=== PATIENT | female | born 1950 | race Caucasian/White ===

== ENCOUNTER 2023-12-29 13:36 | Inpatient (IN) | payer OTHER ==
[2023-12-29 14:28] LABS: Absolute Basophils 0.1 K/uL (0-0.5); Absolute Eosinophils 0.3 K/uL (0-0.5); Absolute Monocytes 0.5 K/uL (0.1-1.3); Absolute Neutrophil 3.2 K/uL (1.8-8.0); Eosinophils % 5.1 % (0-4.4); Hematocrit 31.9 % (36.0-45.0); Hemoglobin 10.3 g/dL (12.0-15.0); Lymphocytes % 32.9 % (15.3-44.8); MCH 26.2 pg (27.0-35.0); MCHC 32.4 g/dL (32.0-36.0); MCV 80.8 fL (80-100); MPV 7.5 fL (7.6-11.3); Monocytes % 8.1 % (3.3-12.3); Neutrophils % 52.9 % (41.7-73.7); Platelets 227 thou/uL (152-406); RBC Red Blood Cell Count 3.95 M/uL (3.86-4.86); Red Cell Distribution Width 16.6 % (12.1-15.2)
--- NOTE | 2023-12-29 14:34 | RAD REPORT ---
EXAM DESCRIPTION: RAD - Chest Single View - 12/29/2023 2:10 pm CLINICAL HISTORY: ams COMPARISON: No comparisons FINDINGS: Lines: None. Lungs: No evidence of edema or pneumonia. Pleural: No significant pleural effusions or pneumothorax. Cardiac: Mild cardiomegaly. Mediastinum: Within normal limits. Bones: No acute fractures. Other: None IMPRESSION: No acute cardiopulmonary disease.
[2023-12-29 14:48] LABS: ALT/SGPT 15 U/L (13-56); Albumin 2.7 g/dL (3.4-5.0); Albumin/Globulin Ratio 0.7 (1.1-1.8); Alkaline Phosphatase 77 U/L (45-117); Anion Gap 5.4 mEq/L (5.0-15.0); BUN Blood Urea Nitrogen 23 mg/dL (7-18); Bicarbonate 31 mEq/L (21-32); Bilirubin Total 0.2 mg/dL (0.2-1.0); Globulin 4.1 g/dL (2.3-3.5); Glomerular Filtration Rate 87 ml/min (=/>90); Glucose Level 146 mg/dL (74-106); Lipase 16 U/L (13-75); Potassium 3.4 mEq/L (3.5-5.1); Protein, Total 6.8 g/dL (6.4-8.2); Sodium Level 142 mEq/L (136-145); Troponin High Sensitivity 13.8 pg/mL (<58.9)
[2023-12-29 14:49] LABS: AST/SGOT < 10 U/L (15-37)
[2023-12-29 14:53] LABS: Specific Gravity 1.019 (1.005-1.030); Sqamous Epithelial <5 /HPF (None Seen); Urine Bacteria None Seen /HPF (<20); Urine Bilirubin NEGATIVE (Negative); Urine Blood Trace (Negative); Urine Clarity Extremely Turbid (Clear); Urine Color Light-Yellow (Yellow); Urine Crystals Unidentified Few /HPF (None Seen); Urine Culture Reflex Order REFLEXED; Urine Glucose NEGATIVE (Negative); Urine Ketones NEGATIVE (Negative); Urine Microscopic Reflex YN ORDER UMIC; Urine Nitrite 2+ (Negative); Urine Protein 2+ (Negative); Urine Urobilinogen Normal (Normal); Urine WBC >50 /HPF (<5); Urine Yeast (Budding) Occasional /HPF (None Seen)
--- NOTE | 2023-12-29 15:33 | RAD REPORT ---
EXAM DESCRIPTION: CT - Head Brain Wo Cont - 12/29/2023 3:22 pm CLINICAL HISTORY: ams COMPARISON: No comparisons TECHNIQUE: All CT scans are performed using dose optimization technique as appropriate and may inclu de automated exposure control or mA/KV adjustment according to patient size. FINDINGS: No intracranial hemorrhage, hydrocephalus or extra-axial fluid collection.No areas of brai n edema or evidence of midline shift. Age advanced moderate to severe cerebral atrophy. At least mode rate chronic small vessel ischemic changes. The paranasal sinuses and mastoids are clear. The calvarium is intact. IMPRESSION: No acute intracranial abnormality. Age advanced senescent changes.
--- NOTE | 2023-12-29 15:38 | RAD REPORT ---
EXAM DESCRIPTION: CTAbdomen Pelvis W Contrast - 12/29/2023 3:22 pm CLINICAL HISTORY: vaginal bleeding, ams COMPARISON: Head Brain Wo Cont dated 12/29/2023 TECHNIQUE: CT of the abdomen and pelvis was performed. All CT scans are performed using dose optimization technique as appropriate and may include automated exposure control or mA/KV adjustment according to patient size.5 FINDINGS: Lower chest: Mitral annular calcifications. Mild circumferential thickened distal esophagu s. Liver: No acute abnormality or suspicious lesions. Biliary: No biliary ductal dilatation. Stomach: No significant focal abnormality. Duodenum: No significant focal abnormality. Pancreas: No significant abnormality. Spleen: No significant abnormality. Adrenal: No suspicious lesions. Kidney/ureter: No hydronephrosis. No renal calculi. Too small to characterize and/or benign appearing renal lesions are noted. Retroperitoneum: No retroperitoneal adenopathy. Vascular: No aneurysm. Atherosclerosis . Bowel: No significant focal abnormality. Peritoneum: No ascites or free air. Fat containing hernia. Bladder: Bladder wall thickening with either layering debris or enhancement. Reproductive: No adnexal masses. Bones: No acute fracture. Multilevel degenerative changes are present in the spine. Grade 1 anterolis thesis of L3 on L4. Other: n/a IMPRESSION: No acute intra-abdominal or pelvic finding. Bladder wall thickening and enhancement could reflect cystitis. There may be some debris or enhanceme nt near the left UVJ. Consider nonemergent cystoscopy to evaluate this portion of the bladder and exc lude a small lesion.
[2023-12-29] MEDS ORDERED: CEFTRIAXONE 1000 MG/VIAL ONE (17:53)
[2023-12-29] MEDS ORDERED: NA CHLORIDE 0.9% 500 ML ONE (17:54)
--- NOTE | 2023-12-29 18:07 | EDPHYS ---
Physician Documentation [facility] Name: Tasha Hernandez Age: 73 yrs Sex: Female : 1950 Arrival Date: 12/29/2023 Time: 13:36 Bed 16 Private MD: ED Physician Pedro López HPI: 12/28 17:59 This 73 yrs old Female presents to ER via EMS with complaints of Vaginal Bleeding. rt 17:59 Patient presents to the ED with reported altered mental status, vaginal bleeding. rt History is severe limited due to patient with advanced dementia. It is reported that the patient had some blood in the diaper at the retirement which is why they are reporting vaginal bleeding. No other reported symptoms.. Historical: - Allergies: 13:41 metformin; cp4 13:41 Melatonin; cp4 - PMHx: 13:41 Dementia; Diabetes mellitus; Hypertensive disorder; Anxiety; cp4 - Immunization history:: Adult Immunizations up to date. - Infectious Disease History:: Denies. CDIFF, C. Auris, ESBL, MRSA (w/in 1 year), VRE (w/in 1 year), TB, . - Social history:: Smoking status: Patient denies any tobacco usage or history of. - Family history:: not pertinent. ROS: 17:59 Unable to obtain ROS due to baseline dementia, rt Exam: 17:59 Chest/axilla: Normal chest wall appearance and motion. Nontender with no deformity. rt No lesions are appreciated. Cardiovascular: Regular rate and rhythm with a normal S1 and S2. No gallops, murmurs, or rubs. Normal PMI, no JVD. No pulse deficits. Respiratory: Lungs have equal breath sounds bilaterally, clear to auscultation and percussion. No rales, rhonchi or wheezes noted. No increased work of breathing, no retractions or nasal flaring. Abdomen/GI: Soft, non-tender, with normal bowel sounds. No distension or tympany. No guarding or rebound. No evidence of tenderness throughout. Skin: Warm, dry with normal turgor. Normal color with no rashes, no lesions, and no evidence of cellulitis. MS/ Extremity: Pulses equal, no cyanosis. Neurovascular intact. Full, normal range of motion. 17:59 Constitutional: The patient appears Somnolent, not speaking 17:59 ECG was reviewed by the Attending Physician. rt Vital Signs: 13:38 BP 145 / 91; Pulse 87; Resp 18; Temp 98.2; Pulse Ox 98% ; Pain 0/10; cp4 14:30 BP 129 / 62; Pulse 75; Resp 18; Pulse Ox 97% ; cp4 15:30 BP 158 / 52; Pulse 62; Resp 18; Pulse Ox 97% ; cp4 16:30 BP 123 / 72; Pulse 18; Resp 84; Pulse Ox 97% ; cp4 17:30 BP 149 / 87; Pulse 75; Resp 18; Pulse Ox 98% ; cp4 13:38 Pain Scale: Adult cp4 MDM: 13:46 Patient medically screened. rt 17:59 Differential diagnosis: UTI, AMS, intracranial hemorrhage. Data reviewed: vital signs, rt nurses notes, lab test result(s), EKG, radiologic studies. Consideration of Admission/Observation Patient was admitted/placed on observation. Management of patient was discussed with the following: Hospitalist: Agrees to admit. I considered the following discharge prescriptions or medication management in the emergency department Medications were administered in the Emergency Department. See MAR. Independent interpretation of the following test(s) in the Emergency Department CT Scan: My interpretation is No intracranial hemorrhage seen on my interpretation of CT scan images. Care significantly affected by the following chronic conditions: Diabetes. Counseling: I had a detailed discussion with the patient and/or guardian regarding the historical points, exam findings, and any diagnostic results supporting the discharge/admit diagnosis, lab results, radiology results, the need for further work-up and treatment in the hospital. 12/28 13:53 Order name: CBC with Diff; Complete Time: 15:39 rt 12/28 13:53 Order name: CMP; Complete Time: 15:39 rt 12/28 13:53 Order name: Lipase; Complete Time: 15:39 rt 12/28 13:53 Order name: Urinalysis w/ reflexes; Complete Time: 15:39 rt 12/28 13:53 Order name: Troponin HS; Complete Time: 15:39 rt 12/28 14:59 Order name: Urine Culture EDMS 12/28 18:40 Order name: Urinalysis w/ reflexes EDMS 12/28 18:40 Order name: CBC with Automated Diff EDMS 12/28 18:40 Order name: CBC with Automated Diff EDMS 12/28 18:40 Order name: Comprehensive Metabolic Panel [facility] 12/28 18:40 Order name: Comprehensive Metabolic Panel [facility] 12/28 13:53 Order name: CT Abd/Pelvis - IV Contrast Only; Complete Time: 15:39 rt 12/28 13:53 Order name: XRAY Chest (1 view); Complete Time: 15:39 rt 12/28 13:53 Order name: CT Head Brain wo Cont; Complete Time: 15:39 rt 12/28 13:53 Order name: EKG; Complete Time: 13:53 rt 12/28 13:53 Order name: IV Saline Lock; Complete Time: 14:21 rt 12/28 13:53 Order name: Labs collected and sent; Complete Time: 14:21 rt 12/28 13:53 Order name: Cardiac monitoring; Complete Time: 13:55 rt 12/28 13:53 Order name: EKG - Nurse/Tech; Complete Time: 14:52 rt 12/28 13:53 Order name: O2 Per Protocol; Complete Time: 13:55 rt 12/28 13:53 Order name: O2 Sat Monitoring; Complete Time: 13:55 rt EC:59 Rate is 75 beats/min. Rhythm is regular, Normal Sinus Rhythm with Right bundle branch rt block. QRS [place] is Normal. MD interval is normal. QRS interval is normal. No Q waves. Administered Medications: 18:06 Drug: NS 0.9% IV 500 ml IV at bolus once Route: IV; Rate: bolus; Site: left antecubital;cp4 18:06 Drug: Rocephin IV 1 grams IV at calculated rate once; Given slow IV push per pharmacy cp4 instructions Route: IV; Rate: calculated rate; Site: left antecubital; 18:12 Follow up: Response: No adverse reaction; IV Status: Completed infusion cp4 Disposition Summary: 12/29/23 18:06 Hospitalization Ordered Notes: Hospitalization Status: Inpatient Admission rt Provider: Joe Lorenz rt Location: Telemetry/MedSurg (observation) rt Condition: Stable rt Problem: new rt Symptoms: are unchanged rt Bed/Room Type: Standard rt Room Assignment: 202(12/29/23 19:07) vk Diagnosis - UTI rt - Sepsis rt Forms: - Medication Reconciliation Form rt - SBAR form rt - Leadership Thank You Letter rt Signatures: Dispatcher [employer] Pedro Oliveira MD MD rt Cammy Samuel cp4 Megan Yee Corrections: (The following items were deleted from the chart) 13:53 13:53 Head Brain Wo Cont+CT.RAD.BRZ ordered. EDMS EDMS 19:07 18:06 rt jose enrique
--- NOTE | 2023-12-29 18:07 | ER ---
Nurse's Notes [facility] Name: Tasha Hernandez Age: 73 yrs Sex: Female : 1950 Arrival Date: 12/29/2023 Time: 13:36 Bed 16 Private MD: Diagnosis: UTI;Sepsis Presentation: 12/28 13:38 Chief complaint: EMS states: vaginal bleeding. States patient was here last month for cp4 the same thing but has not followed up. Coronavirus screen: Client denies travel out of the [place] in the last 14 days. At this time, the client does not indicate any symptoms associated with coronavirus-19. Ebola Screen: Patient negative for fever greater than or equal to 101.5 degrees Fahrenheit, and additional compatible Ebola Virus Disease symptoms Patient denies exposure to infectious person. Patient denies travel to an Ebola-affected area in the 21 days before illness onset. No symptoms or risks identified at this time. Initial Sepsis Screen: Does the patient meet any 2 criteria? No. Patient's initial sepsis screen is negative. Does the patient have a suspected source of infection? No. Patient's initial sepsis screen is negative. Risk Assessment: Do you want to hurt yourself or someone else? Patient reports no desire to harm self or others. Onset of symptoms is unknown. 13:38 Method Of Arrival: EMS: [facility] 13:38 Acuity: JAMEL 3 cp4 Triage Assessment: 13:41 General: Appears uncomfortable, Behavior is calm, cooperative, appropriate for age. cp4 Pain: Denies pain. : Reports vaginal bleeding that is bright red, with clots, moderate flow. Historical: - Allergies: 13:41 metformin; cp4 13:41 Melatonin; cp4 - PMHx: 13:41 Dementia; Diabetes mellitus; Hypertensive disorder; Anxiety; cp4 - Immunization history:: Adult Immunizations up to date. - Infectious Disease History:: Denies. CDIFF, C. Auris, ESBL, MRSA (w/in 1 year), VRE (w/in 1 year), TB, . - Social history:: Smoking status: Patient denies any tobacco usage or history of. - Family history:: not pertinent. Screenin:43 [facility] ED Fall Risk Assessment (Adult) History of falling in the last 3 months, cp4 including since admission No falls in past 3 months (0 pts). [facility] ED Fall Risk Assessment (Adult) Confusion or Disorientation No (0 pts) Intoxicated or Sedated No (0 pts) Impaired Gait No (0 pts) Mobility Assist Device Used No (0 pt) Altered Elimination No (0 pt) Score/Fall Risk Level 0 - 2 = Low Risk Oriented to surroundings, Maintained a safe environment, Assessed \T\ reinforced patient's understanding of fall precautions, Hourly rounding (assess needs \T\ fall precautionary measures) done. Abuse screen: Denies threats or abuse. Nutritional screening: No deficits noted. Tuberculosis screening: No symptoms or risk factors identified. Assessment: 13:43 Reassessment: Patient appears in no apparent distress at this time. Pain: Denies pain. cp4 Vital Signs: 13:38 BP 145 / 91; Pulse 87; Resp 18; Temp 98.2; Pulse Ox 98% ; Pain 0/10; cp4 14:30 BP 129 / 62; Pulse 75; Resp 18; Pulse Ox 97% ; cp4 15:30 BP 158 / 52; Pulse 62; Resp 18; Pulse Ox 97% ; cp4 16:30 BP 123 / 72; Pulse 18; Resp 84; Pulse Ox 97% ; cp4 17:30 BP 149 / 87; Pulse 75; Resp 18; Pulse Ox 98% ; cp4 13:38 Pain Scale: Adult cp4 ED Course: 13:37 Patient arrived in ED. cp4 13:38 Cammy Samuel is Primary Nurse. cp4 13:41 Triage completed. cp4 13:41 Pedro López MD is Attending Physician. rt 13:41 Arm band placed on right wrist. Patient placed in an exam room, on a stretcher. cp4 13:43 Bed in low position. Call light in reach. Side rails up X2. cp4 14:12 XRAY Chest (1 view) In Process Unspecified. EDMS 14:21 Troponin HS Sent. cp4 14:21 CBC with Diff Sent. cp4 14:21 CMP Sent. cp4 14:21 Lipase Sent. cp4 14:21 Initial lab(s) drawn, by me, sent to lab. Inserted saline lock: 22 gauge in left cp4 antecubital area, using aseptic technique. Blood collected. 14:52 CBC with Diff Sent. cp4 14:52 Urinalysis w/ reflexes Sent. cp4 15:[address] hb 15:23 CT Abd/Pelvis - IV Contrast Only In Process Unspecified. EDMS 15:23 CT Head Brain wo Cont In Process Unspecified. EDMS 18:06 Joe Lorenz MD is Hospitalizing Provider. rt 19:20 Mallika Urias, RN is Primary Nurse. jw7 20:37 Called to inform 2nd floor of patient coming to room 202 and Liza said the room was rv1 not ready and to wait 10 more minutes. Administered Medications: 18:06 Drug: NS 0.9% IV 500 ml IV at bolus once Route: IV; Rate: bolus; Site: left antecubital;cp4 18:06 Drug: Rocephin IV 1 grams IV at calculated rate once; Given slow IV push per pharmacy cp4 instructions Route: IV; Rate: calculated rate; Site: left antecubital; 18:12 Follow up: Response: No adverse reaction; IV Status: Completed infusion cp4 Medication: 13:43 VIS not applicable for this client. cp4 Outcome: 18:06 Decision to Hospitalize by Provider. rt 21:07 Patient left the ED. jw7 Signatures: Dispatcher [employer] EDWI Debbie Gillespie RN RN Mallika Urias, RN RN jw7 Pedro López MD MD rt Carolina Moe rv1 Cammy Samuel cp4 Corrections: (The following items were deleted from the chart) 20:39 20:37 Called to inform 2nd floor of patient coming to room 202 and was told the room rv1 was not ready. Said to wait 10 minutes. rv1
[2023-12-29] MEDS ORDERED: ACETAMINOPHEN 325 MG TABLET PO PRN (18:34)
[2023-12-29] MEDS ORDERED: ONDANSETRON 4 MG/2 ML VIAL IV PRN (18:34)
--- NOTE | 2023-12-29 18:34 | P.HP ---
Certification for Inpatient Patient admitted to: Inpatient With expected LOS: >2 Midnights Practitioner: I am a practitioner with admitting privileges, knowledge of patient current condition, hospital course, and medical plan of care. Services: Services provided to patient in accordance with Admission requirements found in Title 42 Section 412.3 of the Code of Federal Regulations Patient History Date of Service: 12/29/23 Reason for admission: AMS History of Present Illness: 73 yrs old Female with past medical history of diabetes, hypertension, anxiety, dementia who was brought to ER with complaints of altered mental status. And possible vaginal bleeding. Patient is confused at the time of presentation hence most of the history is obtained from the chart review and also talking to the ER physician. Patient started having confusion and altered mental status for the last 2 days. She has a history of advanced dementia in the [facility]. Patient was more confused than baseline and was sent over here for further management. The [facility] they noticed some blood in the diaper. Denies any fever or chills. No chest pain or shortness of breath. No nausea vomiting or diarrhea. Patient was assessed in the ER and was found to have UTI and was admitted for further management Home medications list reviewed: Yes - Past Medical/Surgical History Past Medical History: Reviewed- Non-Contributory -: Diabetes, hypertension, hyperlipidemia, dementia Past Surgical History: Reviewed- Non-Contributory - Social History Smoking Status: Never smoker Review of Systems 10-point ROS is otherwise unremarkable Physical Examination - Vital Signs Temperature: 98.2 F Blood Pressure: 126/74 Pulse: 78 Respirations: 18 Pulse Ox (%): 94 - Physical Exam General: Alert, In no apparent distress, Cooperative, Confused HEENT: Atraumatic, Normocephalic Neck: Supple, 2+ carotid pulse no bruit Respiratory: Clear to auscultation bilaterally, Normal air movement Cardiovascular: No edema, Regular rate/rhythm, Normal S1 S2 Capillary refill: <2 Seconds Gastrointestinal: Soft and benign, Non-distended, W/out hepatosplenomegaly Musculoskeletal: No clubbing, No swelling Integumentary: No rashes, No tenderness/swelling Neurological: Normal strength at 5/5 x4 extr, Cranial nerves 3-12 intact, Dementia Lymphatics: No axilla or inguinal lymphadenopathy - Studies Laboratory Data (last 24 hrs) 12/29/23 12/29/23 14:19 14:19 WBC 6.00 Hgb 10.3 L Hct 31.9 L Plt Count 227 Sodium 142 Potassium 3.4 L BUN 23 H Creatinine 0.72 Glucose 146 H Total Bilirubin 0.2 AST < 10 L ALT 15 Alkaline Phosphatase 77 Lipase 16 Assessment and Plan - Problems (Diagnosis) (1) Acute metabolic encephalopathy Current Visit: Yes Status: Acute Plan: Acute encephalopathy metabolic Monitor closely on telemetry CT head negative for any acute changes Monitor neuro vital signs closely UTI Started on IV antibiotics Will obtain cultures Change antibiotic as per sensitivity Dehydration Acute renal insufficiency Hypokalemia Started on IV hydration Electrolytes monitor and replace accordingly Renal parameters monitored Hypertension Antihypertensives titrated Continue home medications and titrate as needed Hyperlipidemia Continue statin Dementia Continue home medications Supportive management Left UVJ lesion Needs outpatient follow-up with urology May need outpatient cystoscopy GI/DVT prophylaxis Advanced directive full code Discharge Plan: Alf Plan to discharge in: 48 Hours - Advance Directives Does patient have a Living Will: No Does patient have a Durable POA for Healthcare: No - Code Status/Comfort Care Code Status: Full Code Time Spent Managing Pts Care (In Minutes): 48
[2023-12-29] MEDS ORDERED: CEFTRIAXONE 1,000 MG in NA CHLORIDE 0.9% 50 ML IVPB SCH (18:39)
[2023-12-29] MEDS: NA CHLORIDE 0.9% 1,000 ML IV SCH (19:00)
[2023-12-29] MEDS: D5 0.9 NS 1,000 ML IV SCH (22:35)
[2023-12-30 07:07] LABS: Absolute Basophils 0.1 K/uL (0-0.5); Absolute Eosinophils 0.2 K/uL (0-0.5); Absolute Lymphocytes (CBC) 2.1 K/uL (0.7-4.9); Absolute Monocytes 0.5 K/uL (0.1-1.3); Absolute Neutrophil 2.9 K/uL (1.8-8.0); Basophils % 0.9 % (0-1.3); Eosinophils % 4.3 % (0-4.4); Hematocrit 29.4 % (36.0-45.0); Hemoglobin 9.9 g/dL (12.0-15.0); Lymphocytes % 36.1 % (15.3-44.8); MCH 26.7 pg (27.0-35.0); MCHC 33.6 g/dL (32.0-36.0); MCV 79.6 fL (80-100); MPV 7.3 fL (7.6-11.3); Monocytes % 8.6 % (3.3-12.3); Neutrophils % 50.1 % (41.7-73.7); Platelets 233 thou/uL (152-406); Red Cell Distribution Width 16.8 % (12.1-15.2)
[2023-12-30 07:27] LABS: AST/SGOT 11 U/L (15-37); Albumin 2.4 g/dL (3.4-5.0); Albumin/Globulin Ratio 0.6 (1.1-1.8); Alkaline Phosphatase 62 U/L (45-117); BUN Blood Urea Nitrogen 16 mg/dL (7-18); Bicarbonate 29 mEq/L (21-32); Bilirubin Total 0.2 mg/dL (0.2-1.0); Globulin 3.7 g/dL (2.3-3.5); Glomerular Filtration Rate 96 ml/min (=/>90); Glucose Level 84 mg/dL (74-106); Protein, Total 6.1 g/dL (6.4-8.2); Sodium Level 140 mEq/L (136-145)
[2023-12-30 07:28] LABS: ALT/SGPT < 14 U/L (13-56)
[2023-12-30] MEDS: ENOXAPARIN 40 MG/0.4 ML SQ SCH (08:34)
[2023-12-30] MEDS: POTASSIUM 25 MEQ EFFERV TAB PO ONE (08:34)
[2023-12-30] MEDS: PNEUMOCOCCAL VACCINE 0.5 ML IMVAC ONE (11:45)
[2023-12-30] MEDS ORDERED: D10W 250 ML BAG IV PRN (12:13)
[2023-12-30] MEDS ORDERED: GLUCAGON 1 MG/VIAL IM PRN (12:13)
--- NOTE | 2023-12-30 12:14 | P.PN ---
Subjective Date of Service: 12/30/23 Chief Complaint: AMS possible urosepsis No change in patient's condition patient has end-stage dementia does not communicate does not appear to be in any distress Review of Systems is unable to be obtained Physical Examination - Vital Signs Temperature: 97.5 F Blood Pressure: 165/72 Pulse: 76 Respirations: 16 Pulse Ox (%): 93 - Physical Exam General: Alert, Unresponsive Respiratory: Clear to auscultation bilaterally Cardiovascular: No edema, Regular rate/rhythm, Normal S1 S2 - Studies Laboratory Data (last 24 hrs) 12/29/23 12/29/23 14:19 14:19 WBC 6.00 Hgb 10.3 L Hct 31.9 L Plt Count 227 Sodium 142 Potassium 3.4 L BUN 23 H Creatinine 0.72 Glucose 146 H Total Bilirubin 0.2 AST < 10 L ALT 15 Alkaline Phosphatase 77 Lipase 16 Assessment And Plan - Current Problems (Diagnosis) (1) Cystitis Current Visit: Yes Status: Acute Plan: Patient is 73 years of age end-stage dementia admitted with altered mental status cystitis urinalysis is positive awaiting cultures continue with present antibiotic (2) Vaginal bleeding Current Visit: Yes Status: Acute Plan: It may be from the UTI we will continue to monitor
[2023-12-30] MEDS: INSULIN GLARGINE 100 UNIT/ML SQ SCH (12:30)
[2023-12-30] MEDS: LORATADINE 10 MG TAB PO SCH (13:44)
[2023-12-30] MEDS: ASPIRIN 81 MG CHEWABLE TABLET PO SCH (13:44)
[2023-12-30] MEDS: LORAZEPAM 0.5 MG TABLET PO SCH (13:44)
[2023-12-30] MEDS: METOPROLOL XL 25 MG TAB PO SCH (13:44)
[2023-12-30] MEDS: lisinopriL 10 MG TAB PO SCH (13:44)
[2023-12-30] MEDS: DIVALPROEX NA 125 MG CAP PO SCH (13:44)
--- NOTE | 2023-12-30 14:14 | EKG ---
Test Date: 2023-12-29 Test Time: 14:28:54 Head Of Music: MARGUERITE MEASUREMENT RESULTS: Intervals: Rate: 75 OR: 176 QRSD: 134 QT: 434 QTc: 484 [place]: P: 73 OR: 176 QRS: 82 T: 31 INTERPRETIVE STATEMENTS: Normal sinus rhythm Right bundle branch block Abnormal ECG No previous ECG available for comparison Electronically Signed On 12-30-23 14:11:33 CDT by J Carlos Hermosillo
[2023-12-30] MEDS: INSULIN REGULAR (HUMAN) 100 UNIT/ML SQ SCH (16:11)
[2023-12-30] MEDS: CEFTRIAXONE 1,000 MG in NA CHLORIDE 0.9% 50 ML IVPB SCH (17:29)
[2023-12-30] MEDS: ATORVASTATIN 40 MG TAB PO SCH (20:24)
[2023-12-30] MEDS: GLUCERNA SHAKE 237 ML CAN PO SCH (21:00)
[2023-12-30] MEDS: HALOPERIDOL LACT 5 MG/ML INJ IV PRN (23:01)
[2023-12-31 07:13] LABS: Anion Gap 7.2 mEq/L (5.0-15.0); Magnesium 1.7 mg/dL (1.6-2.4); Phosphorus 2.8 mg/dL (2.5-4.9); Potassium 3.2 mEq/L (3.5-5.1)
[2023-12-31] MEDS ORDERED: HOME MED 1 EA UNK (Insulin Glargine,Hum.Rec.Anlog [Lantus Solostar] 100 UNIT/ML Insuln.Pen SQ SCH (09:00)
[2023-12-31] MEDS: MAGNESIUM SULFATE 1 gm IVPB 1 GM/100 ML BAG IV ONE (09:55)
[2023-12-31] MEDS: POTASSIUM 25 MEQ EFFERV TAB PO ONE (09:55)
[2023-12-31] MEDS: Meropenem 1,000 MG in NA CHLORIDE 0.9% 100 ML IV SCH (11:46)
[2023-12-31] MEDS: Mupirocin NASAL 2 APPL/1 GM TUBE NAS SCH (20:21)
[2024-01-01] MEDS ORDERED: HALOPERIDOL LACT 5 MG/ML INJ IV ONE (02:15)
[2024-01-01 08:00] VITALS: BMI 28.9
--- NOTE | 2024-01-01 09:32 | P.PN ---
Subjective Date of Service: 01/01/24 Chief Complaint: ESBL infection Patient is doing well no complaint Review of Systems is unable to be obtained Physical Examination - Vital Signs Temperature: 97.4 F Blood Pressure: 186/77 Pulse: 84 Respirations: 18 Pulse Ox (%): 96 - Physical Exam General: Alert, Unresponsive Respiratory: Clear to auscultation bilaterally - Studies Microbiology Data (last 24 hrs): 12/29/23 14:45 Clean Catch Urine [place] Count - Final >100,000 CFU/ML. 12/29/23 14:45 Clean Catch Urine - Final Escherichia Coli Esbl Assessment And Plan - Current Problems (Diagnosis) (1) Cystitis Current Visit: Yes Status: Acute Plan: Patient has ESBL infection will need a total of 2 weeks of meropenem and now has a PICC line daughter agreeable discharge back to the custodial once antibiotics have been arranged (2) Vaginal bleeding Current Visit: Yes Status: Acute Plan: No vaginal bleeding noted
--- NOTE | 2024-01-01 09:34 | P.PN ---
Subjective Date of Service: 01/01/24 Chief Complaint: ESBL infection Daughter was initially reluctant for the patient to have a PICC line as she has pulled it in the past and otherwise has no complaints Review of Systems is unable to be obtained Physical Examination - Vital Signs Temperature: 97.4 F Blood Pressure: 186/77 Pulse: 84 Respirations: 18 Pulse Ox (%): 96 - Physical Exam General: Alert, Unresponsive Respiratory: Clear to auscultation bilaterally Cardiovascular: No edema, Normal pulses, Regular rate/rhythm - Studies Microbiology Data (last 24 hrs): 12/29/23 14:45 Clean Catch Urine [place] Count - Final >100,000 CFU/ML. 12/29/23 14:45 Clean Catch Urine - Final Escherichia Coli Esbl Assessment And Plan - Current Problems (Diagnosis) (1) Cystitis Current Visit: Yes Status: Acute Plan: Patient has an ESBL infection I discussed with At length she was very reluctant for the patient to have a PICC line and as she is afraid that she will pull out the PICC line I advised her that not be able to treat without 2 weeks of meropenem the ESBL infection and she finally agreed to have 1 placed once antibiotics have been set up [facility] (2) Vaginal bleeding Current Visit: Yes Status: Acute Plan: No vaginal bleeding noted (3) Atrial fibrillation Current Visit: Yes Status: Acute Plan: Tx with beta blockers Qualifiers: Atrial fibrillation type: paroxysmal Qualified Code(s): I48.0 - Paroxysmal atrial fibrillation
--- NOTE | 2024-01-01 09:57 | RAD REPORT ---
EXAM DESCRIPTION: RAD - Chest Single View - 01/01/2024 5:12 am CLINICAL HISTORY: 73 years Female, PICC Placement COMPARISON: Chest x-ray report from 12/29/2023. The image was not available for review. TECHNIQUE: Single portable x-ray view of the chest performed on 01/01/2024 at 5:00 AM FINDINGS: The lungs are well expanded and are clear. There is no evidence of a pneumothorax. The cardiac silhouette is normal in size and configuration. There are atherosclerotic calcifications along the thoracic aorta. The mediastinal contours are normal. No acute osseous abnormality is identified. No focal soft tissue abnormalities are seen. Lines and tubes: A right upper extremity PICC line catheter is present. The tip terminates in the r egion of the distal superior vena cava. Free air: None identified, IMPRESSION: The tip of the right upper extremity PICC line catheter terminates in the region of the distal superior vena cava. Electronically signed by: Tiffani Park DO 01/01/2024 06:59 AM CDT Due to temporary technical issues with the PACS/Fluency reporting system, reports are being signed by the in house radiologist without review as a courtesy to ensure prompt reporting. The interpreting r adiologist is fully responsible for the content of the report.
[2024-01-01] MEDS: lisinopriL 10 MG TAB PO ONE (09:59)
[2024-01-01] MEDS ORDERED: lisinopriL 20 MG TAB PO SCH (10:00)
[2024-01-01 14:21] VITALS: O2SAT 92
--- NOTE | 2024-01-01 15:23 | P.DS ---
Admission Date: 12/29/23 Discharge Date: 01/01/24 Disposition: ROUTINE DISCHARGE Discharge Condition: FAIR Reason for Admission: ESBL infection - Problems (1) Cystitis Current Visit: Yes Status: Acute (2) Vaginal bleeding Current Visit: Yes Status: Acute (3) Atrial fibrillation Current Visit: Yes Status: Acute Qualifiers: Atrial fibrillation type: paroxysmal Qualified Code(s): I48.0 - Paroxysmal atrial fibrillation Brief History of Present Illness: Patient is 73 years of age with end-stage dementia admitted with altered mental status Hospital Course: Patient was admitted was diagnosed to have ESBL infection was started on meropenem discharged home with a PICC line and home meropenem for total of 14 days also developed A-fib plan for rate control with metoprolol high risk of bleeding will avoid Eliquis just use aspirin patient's condition remained stable at the time of discharge was alert unresponsive no distress discussed with the daughter stable CT of the abdomen shows evidence of some cystitis chest x-ray with his white clear Vital Signs/Physical Exam: Temp Pulse Resp BP Pulse Ox 97.4 F 84 18 186/77 H 96 01/01/24 15:19 01/01/24 15:19 01/01/24 15:19 01/01/24 15:19 01/01/24 15:19 Laboratory Data at Discharge: WBC 5.80 thou/uL (4.3-10.9) 12/30/23 06:49 Hgb 9.9 g/dL (12.0-15.0) L 12/30/23 06:49 Hct 29.4 % (36.0-45.0) L 12/30/23 06:49 Plt Count 233 thou/uL (152-406) 12/30/23 06:49 Sodium 142 mEq/L (136-145) 12/31/23 06:40 Potassium 3.2 mEq/L (3.5-5.1) L 12/31/23 06:40 BUN 12 mg/dL (7-18) 12/31/23 06:40 Creatinine 0.55 mg/dL (0.55-1.02) 12/31/23 06:40 Glucose 176 mg/dL (74-106) H 12/31/23 06:40 Phosphorus 2.8 mg/dL (2.5-4.9) 12/31/23 06:40 Magnesium 1.7 mg/dL (1.6-2.4) 12/31/23 06:40 Total Bilirubin 0.2 mg/dL (0.2-1.0) 12/30/23 06:49 AST 11 U/L (15-37) L 12/30/23 06:49 ALT < 14 U/L (13-56) 12/30/23 06:49 Alkaline Phosphatase 62 U/L (45-117) 12/30/23 06:49 Lipase 16 U/L (13-75) 12/29/23 14:19 Home Medications: Aspirin Chewable [Aspirin Chewable*] 81 mg PO DAILY 12/30/23 Atorvastatin Calcium [Lipitor] 40 mg PO BEDTIME 12/30/23 Divalproex [Depakote Sprinkle*] 250 mg PO BID 12/30/23 Insulin Glargine,Hum.rec.anlog [Lantus Solostar] 24 unit SQ DAILY 12/30/23 Insulin Lispro [Humalog] See Protocol SQ ACHS 12/30/23 LORazepam [Ativan*] 0.5 mg PO TID 12/30/23 Lisinopril [Zestril] 10 mg PO DAILY 12/30/23 Loratadine [Claritin*] 10 mg PO DAILY 12/30/23 Metoprolol Succinate [Toprol Xl*] 25 mg PO DAILY 12/30/23 Loratadine [Claritin*] 10 mg PO DAILY tab 01/01/24 Metoprolol Succinate [Toprol Xl*] 25 mg PO BID 30 Days #60 tab 01/01/24 Mupirocin Calcium [Bactroban Nasal*] 1 appl BRIDGETTE BID tube 01/01/24 New Medications: Metoprolol Succinate [Toprol Xl*] 25 mg PO BID 30 Days #60 tab Physician Discharge Instructions: Roque [address] [address] P:[phone]/ F:[phone] Referral Mere for 12 days IV BID 500 mg New med Metoprolol ordered fax to pharmacy New Dx of Afib Diet: Regular Followup: Steve Villatoro MD [Primary Care Provider] -
[2024-01-01 17:33] VITALS: BP 155/70; TEMP 97.2
[2024-01-01] MEDS ORDERED: DIVALPROEX DR 250 MG TAB PO SCH (21:00)
[2024-01-02] MEDS ORDERED: lisinopriL 20 MG TAB PO SCH (09:00)
== END 2024-01-01 18:42 | DRG 689 ==
LOC: ER 13:36 → ERHOLD 18:34 → 2ND 19:10
PROVIDERS: ADMIT Internal Medicine Sleep Medicine; ATTEND Internal Medicine Sleep Medicine
PROC: 02HV33Z Insertion of Infusion Device into Superior Vena Cava, Percutaneous Approach (ICD-10-PCS; principal; 2024-01-01)
DX: N30.00 Acute cystitis without hematuria (principal); G93.41 Metabolic encephalopathy; Z16.12 Extended spectrum beta lactamase (ESBL) resistance; I10 Essential (primary) hypertension; E11.9 Type 2 diabetes mellitus without complications; E86.0 Dehydration; N28.9 Disorder of kidney and ureter, unspecified; E87.6 Hypokalemia; E78.5 Hyperlipidemia, unspecified; I48.0 Paroxysmal atrial fibrillation; N93.9 Abnormal uterine and vaginal bleeding, unspecified; F03.90 Unspecified dementia, unspecified severity, without behavioral disturbance, psychotic disturbance, mood disturbance, and anxiety; B96.20 Unspecified Escherichia coli [E. coli] as the cause of diseases classified elsewhere; Z23 Encounter for immunization; Z79.4 Long term (current) use of insulin; Z79.82 Long term (current) use of aspirin; Z79.84 Long term (current) use of oral hypoglycemic drugs; Z79.899 Other long term (current) drug therapy
CPT/HCPCS: 36415; 70450; 71045; 74177; 80048; 80053; 81001; 82947; 83690; 83735; 84100; 84484; 85025; 87077; 87086; 87088; 87186; 90471; 90732; 93005; 94760; 96374; 99285; J0696; J1630; J1650; J2185; J3475; J7030; J7040; J7042; Q9967